=== PATIENT | male | born 1985 | race African-American/Black ===

== ENCOUNTER 2017-08-06 09:41 | Emergency (ER) | payer OTHER ==
[~2017-08-06] VITALS: Ht 157.5 cm; Wt 54.4 kg
== END 2017-08-06 13:00 | disposition home or self-care (01) ==
LOC: ED 09:41
DX: M54.9 Dorsalgia, unspecified (principal); M25.562 Pain in left knee; M79.1 Myalgia; V89.2XXA Person injured in unspecified motor-vehicle accident, traffic, initial encounter
CPT/HCPCS: 99283